=== PATIENT | male | born 1955 | race Caucasian/White ===

== ENCOUNTER 2017-06-12 20:52 | Emergency (ER) | payer OTHER ==
[2017-06-12 21:11] VITALS: TEMP 97.9; BMI 31.6
--- NOTE | 2017-06-12 22:34 | PDOC ---
History of Present Illness - General History Source: Patient Exam Limitations: No Limitations - History of Present Illness Initial Comments: 06/12/17 23:02 The patient is a 62 year old male presenting with her daughter, with a significant past medical history of diabetes and enlarged prostate, who presents to the emergency department with right sided facial numbness since yesterday morning. He reports that he he feels numbness mostly on his right eye and right side of his mouth. He notes that he has been having tearing from his right eye as well. The patient denies chest pain, shortness of breath, headache and dizziness. Denies fever, chills, nausea, vomit, diarrhea and constipation. Denies dysuria, frequency, urgency and hematuria. Allergies: None Past surgical history: Cholecystectomy Social history: Alcohol use (rare). No tobacco or drug use reported <Ye Barlow - Last Filed: 06/12/17 23:02> <Felisa Spear - Last Filed: 06/13/17 02:18> - General Chief Complaint: Facial Droop Stated Complaint: HIGH BP Time Seen by Provider: 06/12/17 21:46 Past History <Ye Barlow - Last Filed: 06/12/17 23:02> - Past Medical History COPD: No Diabetes: Yes (type 2) Disorders: Yes (enlarged prostate) - Surgical History Cholecystectomy: Yes - Suicide/Smoking/Psychosocial Hx Smoking History: Never smoked <Felisa Spear - Last Filed: 06/13/17 02:18> - Past Medical History Allergies/Adverse Reactions: Allergies Allergy/AdvReac Type Severity Reaction Status Date / Time No Known Allergies Allergy Verified 06/12/17 21:07 Home Medications: Ambulatory Orders Metformin HCl [Glucophage] 1,000 mg PO BID 06/12/17 Tamsulosin HCl [Flomax] 0.4 mg PO DAILY 06/12/17 Dextran 70/Hypromellose [Artificial Tears Eye Drops] 1 - 2 drop OD QID #7 bottle 06/13/17 Mineral Oil/Petrolatum,White [Lubricant Eye Ointment] 1 applic OD HS #3.5 oint...g. 06/13/17 Prednisone [Deltasone -] 20 mg PO DAILY #30 tablet 06/13/17 Valacyclovir HCl [Valtrex -] 500 mg PO BID #10 tablet 06/13/17 Review of Systems - Review of Systems Able to Perform ROS?: Yes Comments:: 06/12/17 23:02 GENERAL/CONSTITUTIONAL: No fever or chills. No weakness. HEAD, EYES, EARS, NOSE AND THROAT: No change in vision. No ear pain or discharge. No sore throat.- CARDIOVASCULAR: No chest pain or shortness of breath RESPIRATORY: No cough, wheezing, or hemoptysis. GASTROINTESTINAL: No nausea, vomiting, diarrhea or constipation. GENITOURINARY: No dysuria, frequency, or change in urination. MUSCULOSKELETAL: No joint or muscle swelling or pain. No neck or back pain. SKIN: No rash NEUROLOGIC: (+) Right sided facial numbness. No headache, vertigo, loss of consciousness. ENDOCRINE: No increased thirst. No abnormal weight change HEMATOLOGIC/LYMPHATIC: No anemia, easy bleeding, or history of blood clots. ALLERGIC/IMMUNOLOGIC: No hives or skin allergy. <Ye Barlow - Last Filed: 06/12/17 23:02> *Physical Exam - Vital Signs Last Vital Signs Temp Pulse Resp BP Pulse Ox 97.9 F 96 H 16 152/94 99 06/12/17 21:09 06/12/17 21:09 06/12/17 21:09 06/12/17 21:09 06/12/17 21:09 - Physical Exam Comments: 06/12/17 23:03 GENERAL: Awake, alert, and fully oriented, in no acute distress HEAD: No signs of trauma, normocephalic, atraumatic EYES: PERRLA, EOMI, sclera anicteric, conjunctiva clear ENT: Auricles normal inspection, hearing grossly normal, nares patent, oropharynx clear without exudates. Moist mucosa NECK: Normal ROM, supple, no lymphadenopathy, JVD, or masses LUNGS: No distress, speaks full sentences, clear to auscultation bilaterally HEART: Regular rate and rhythm, normal S1 and S2, no murmurs, rubs or gallops, peripheral pulses normal and equal bilaterally. ABDOMEN: Soft, nontender, normoactive bowel sounds. No guarding, no rebound. No masses EXTREMITIES : Normal inspection, Normal range of motion, no edema. No clubbing or cyanosis. NEUROLOGICAL: NEURO: Mental status: The patient is oriented x3. Cranial nerves: Cranial nerves II through XII are intact Motor: The upper extremities are 5 over 5 in all muscle groups. The lower extremities are 5 over 5 in all muscle groups. No pronator drift. Sensation: Sensation is intact to light touch throughout. Neg romberg Cerebellar: Kwnafb-svjjws-gbjj is normal in both upper extremities. Heel-knee- gil is normal in both lower extremities. Reflexes: 2+ and symmetric in the upper and lower extremities. Gait: Normal. Heel and toe walking are normal. Tandem gait is normal. SKIN: Warm, Dry, normal turgor, no rashes or lesions noted. <Ye Barlow - Last Filed: 06/12/17 23:02> - Vital Signs Last Vital Signs Temp Pulse Resp BP Pulse Ox 97.9 F 96 H 16 152/94 99 06/12/17 21:09 06/12/17 21:09 06/12/17 21:09 06/12/17 21:09 06/12/17 21:09 <Felisa Spear - Last Filed: 06/13/17 02:18> ED Treatment Course - LABORATORY CBC & Chemistry Diagram: 06/12/17 22:37 06/12/17 22:37 - ADDITIONAL ORDERS Additional order review: 06/12/17 22:37 RBC 4.99 MCV 87.9 MCHC 34.8 RDW 12.5 MPV 8.3 Neutrophils % 62.4 Lymphocytes % 23.6 Monocytes % 6.9 Eosinophils % 6.2 H Basophils % 0.9 <Ye Barlow - Last Filed: 06/12/17 23:02> - LABORATORY CBC & Chemistry Diagram: 06/12/17 22:37 06/12/17 22:37 <Felisa Spear - Last Filed: 06/13/17 02:18> *DC/Admit/Observation/Transfer - Attestations Scribe Attestion: 06/12/17 23:03 Documentation prepared by Ye Barlow, acting as medical equipment technician for Felisa Spear MD <Ye Barlow - Last Filed: 06/12/17 23:02> <Felisa Spear - Last Filed: 06/13/17 02:18> Diagnosis at time of Disposition: Rouse's palsy - Discharge Dispostion Disposition: HOME Condition at time of disposition: Stable - Prescriptions Prescriptions: Dextran 70/Hypromellose [Artificial Tears Eye Drops] 1 - 2 drop OD QID #7 bottle Mineral Oil/Petrolatum,White [Lubricant Eye Ointment] 1 applic OD HS #3.5 oint...g. Prednisone [Deltasone -] 20 mg PO DAILY #30 tablet Valacyclovir HCl [Valtrex -] 500 mg PO BID #10 tablet - Referrals Referrals: Garrett Lehman DO [Staff Physician] - [facility] [Provider Group] - Patient Instructions Printed Discharge Instructions: DI for Rouse's Palsy Additional Instructions: please worm picker your medications at your pharmacy Please follow up with a neurologist pleaser take the prednisone as directed During the day place artificial tears in your affected eye at least 4 times At night time apply the eye ointment to the affected eye At nighttime you may want to tape the eyelid shut Return for any worsening symptoms Print Language: GEORGIAN NIH Stroke Scale - Last Known Well Date/Time & Onset Date Last Known Well: 06/11/17 Time Last Known Well: 10:00 - Initial Evaluation Level of consciousness: Alert Ask patient the month and their age: Answers both correctly Ask patient to open & close eyes; make fist and let go: Obeys both correctly Best gaze (horizontal eye movement): Normal Visual field testing: No visual field loss Facial paresis (Show teeth/raise eyebrows/close eyes tight): Minor paralysis ( flattened nasolabial fold, asymmetry on smiling) Motor Function: Left Arm: Normal Motor Function: Right Arm: Normal (extends arm 90 (or 45) degrees for 10 seconds without drift Motor Function: Left Leg: Normal (extends leg 30 degrees for 5 seconds without drift) Motor Function: Right Leg: Normal (extends leg 30 degrees for 5 seconds without drift) Limb Ataxia: No ataxia Sensory(Use pinprick test arms,legs,trunk,face/side to side): Normal Best language (Describe picture, name items, read sentences): No Aphasia Dysarthria (read several words): Mild to moderate slurring of words Extinction and Inattention: No abnormality - Total Score NIH Stroke Scale Score: 2 <Felisa Spear - Last Filed: 06/13/17 02:18>
[2017-06-12 22:50] LABS: BASOPHIL 0.9 % (0-2.0); EOSINOPHIL 6.2 % (0-4.5); MCH 30.6 pg (25.7-33.7); MCHC 34.8 g/dl (32.0-35.9); MEAN CELL VOLUME 87.9 fl (80-96); MEAN PLT VOLUME 8.3 fl (7.5-11.1); NEUTROPHILS 62.4 % (42.8-82.8); PLATELET COUNT 188 K/MM3 (134-434); RDW 12.5 % (11.9-15.9)
[2017-06-12 23:14] LABS: INR 1.02 (0.82-1.09); PROTHROMBIN TIME (PATIENT) 11.5 SEC (9.98-11.88)
[2017-06-12 23:26] LABS: ANION GAP 7 (8-16); BILIRUBIN,TOTAL 0.5 mg/dL (0.2-1.0); CALCIUM 7.7 mg/dL (8.5-10.1); CO2 28 mmol/L (21-32); GLUCOSE,RANDOM 255 mg/dL (74-106); SGOT/AST 18 U/L (15-37); SGPT/ALT 33 U/L (12-78); TOT PROT 6.4 g/dl (6.4-8.2)
[2017-06-12 23:27] LABS: ALK PHOS 144 U/L (45-117)
[2017-06-13 00:41] VITALS: BP 162/96; PULSE 90
[2017-06-13] MEDS ORDERED: predniSONE 20 MG TABLET (UD) PO ONE (01:19)
[2017-06-13] MEDS ORDERED: predniSONE 20 MG TABLET (UD) ONE (01:40)
[2017-06-13] MEDS ORDERED: ACYCLOVIR 200 MG CAPSULE ONE (01:50)
[2017-06-13] MEDS ORDERED: ACYCLOVIR 400 MG TABLET PO ONE (01:52)
== END 2017-06-13 02:19 | disposition home or self-care (01) ==
LOC: JER 20:52
DX: G51.0 Bell's palsy (principal); E11.9 Type 2 diabetes mellitus without complications; Z79.84 Long term (current) use of oral hypoglycemic drugs; N40.0 Benign prostatic hyperplasia without lower urinary tract symptoms
CPT/HCPCS: 36415; 70450-TC; 80053; 85025; 85610; 86618; 99283-25